=== PATIENT | male | born 1975 | race Caucasian/White ===

== ENCOUNTER 2017-07-29 11:10 | Emergency (ER) | payer OTHER, MEDICAID ==
[~2017-07-29] VITALS: Ht 170.2 cm; Wt 59.9 kg
[~2017-07-29 11:10] MED LIST: BACTRIM DS TAB1 EACH PO; HUMALOG100 UNIT/1 SUBQ; KEFLEX500 MG PO; LANTUS100 UNIT/M SUBQ; LISINOPRIL2.5 MG PO; NEURONTIN600 MG PO; TOUJEO SOL300 UNIT/1
[2017-07-29] MEDS ORDERED: NOVOLOG100 UNIT/1 SUBQ (11:23)
[2017-07-29] MEDS ORDERED: TRADJENTA5 MG (11:25)
[2017-07-29] MEDS ORDERED: TRIAMCINOLONE A80 G2 TOP (11:35)
[2017-07-29 11:43] VITALS: BP 110/67
== END 2017-07-29 11:44 | disposition home or self-care (01) ==
LOC: M.ERS 11:10
DX: L25.9 Unspecified contact dermatitis, unspecified cause (principal); E10.40 Type 1 diabetes mellitus with diabetic neuropathy, unspecified

== ENCOUNTER 2017-10-17 19:58 | Observation (INO) | payer OTHER, MEDICAID ==
[~2017-10-17] VITALS: Ht 170.2 cm; Wt 64.4 kg
[2017-10-17 19:58] VITALS: BP 112/64
[~2017-10-17 19:58] MED LIST changes: +NOVOLOG100 UNIT/1 SUBQ; +TRADJENTA5 MG; +TRIAMCINOLONE A80 G2 TOP
[2017-10-17 20:30] LABS: ABSOLUTE EOSINOPHILS 0.3 thou/uL (0.0-0.7); ABSOLUTE LYMPHOCYTES 1.1 thou/uL (0.8-5.3); ABSOLUTE MONOCYTES 0.2 thou/uL (0.0-1.2); ABSOLUTE NEUTROPHILS 3.8 thou/uL (1.6-8.1); BASOPHILS 0.5 %; EOSINOPHILS 5.7 %; HEMATOCRIT 32.8 % (42.0-52.0); HEMOGLOBIN 11.6 gm/dL (14.0-18.0); LYMPHOCYTES 19.8 %; MCH 29.5 pg (26.0-34.0); MCHC 35.4 g/dL (28.0-37.0); MCV 83.2 fL (80.0-100.0); MONOCYTES 4.5 %; MPV 6.7 fl. (7.2-11.1); NUCLEATED RBCS 0 /100WBC; PLATELET COUNT* 157 thou/uL (150-400); POLYS 69.5 %; RBC 3.94 mil/uL (4.50-6.00); RDW-CV 12.8 % (10.5-14.5); WBC 5.5 thou/uL (4.0-11.0)
[2017-10-17 20:37] LABS: ANION GAP 6 mmol/L (7-16); BUN 22 mg/dL (7-18); CALCIUM 9.5 mg/dL (8.5-10.1); CHLORIDE 108 mmol/L (98-107); CO2 30 mmol/L (21-32); CREATININE 1.3 mg/dL (0.6-1.3); GLUCOSE 62 mg/dL (70-99); SODIUM 144 mmol/L (136-145)
[2017-10-17 20:39] LABS: POTASSIUM 2.9 mmol/L (3.5-5.1)
[2017-10-17 20:45] LABS: ALBUMIN 3.4 g/dL (3.4-5.0); ALKALINE PHOSPHATASE 67 U/L (46-116); SGOT 6 U/L (15-37); SGPT 14 U/L (30-65); TOTAL BILIRUBIN 0.3 mg/dL (<0.1-1.0); TOTAL PROTEIN 6.9 g/dL (6.4-8.2); TROPONIN-I LEVEL <0.06 ng/mL (<0.06)
[2017-10-18 04:00] VITALS: BP 120/68
[2017-10-18 08:00] VITALS: BP 101/69
[2017-10-18 11:37] LABS: URINE BILIRUBIN NEGATIVE (Negative); URINE BLOOD TRACE (Negative); URINE CLARITY CLEAR; URINE COLOR YELLOW; URINE GLUCOSE-RANDOM 3+ (Negative); URINE KETONES 1+ (Negative); URINE LEUKOCYTES-REFLEX NEGATIVE (Negative); URINE NITRITE-REFLEX NEGATIVE (Negative); URINE PROTEIN NEGATIVE (Negative); URINE UROBILINOGEN 0.2 E.U./dl (0.2-1.0)
[2017-10-18 12:00] VITALS: BP 145/83
[2017-10-18 16:13] VITALS: BP 144/95
[2017-10-18 20:00] VITALS: BP 93/55
[2017-10-19] VITALS: BP 125/70; BP 97/54
[2017-10-19 03:07] LABS: GLYCOHEMOGLOBIN (HGB A1C) 9.5 % (4.8-5.6)
[2017-10-19 04:00] VITALS: BP 85/50
[2017-10-19 05:06] LABS: CALCIUM 8.5 mg/dL (8.5-10.1); CREATININE 1.3 mg/dL (0.6-1.3); POTASSIUM 4.2 mmol/L (3.5-5.1)
[2017-10-19 08:00] VITALS: BP 120/76
--- NOTE | 2017-10-19 09:37 | EKG ---
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
[2017-10-19 11:59] VITALS: BP 100/66
[2017-10-19] MEDS ORDERED: AZITHROMYCIN 2250 MG PO (12:01)
[2017-10-19 12:06] VITALS: BP 100/66
[2017-10-20 03:07] LABS: GLYCOHEMOGLOBIN (HGB A1C) 9.5 % (4.8-5.6)
== END 2017-10-19 12:56 | disposition home or self-care (01) ==
LOC: M.ERS 19:58 → M.TBA-ER 10-18 00:39 → M.2W 10-18 00:39
PROVIDERS: Internal Medicine; Personal Emergency Response Attendant; ADMIT Internal Medicine
DX: E10.649 Type 1 diabetes mellitus with hypoglycemia without coma (principal); J15.9 Unspecified bacterial pneumonia; E10.40 Type 1 diabetes mellitus with diabetic neuropathy, unspecified; E87.6 Hypokalemia; E10.65 Type 1 diabetes mellitus with hyperglycemia

== ENCOUNTER 2018-07-27 08:38 | Emergency (ER) | payer OTHER, MEDICAID ==
[~2018-07-27] VITALS: Ht 170.2 cm; Wt 63.5 kg
--- NOTE | ~2018-07-27 | CON ---
[address] [address] CONSULTATION Name: KAREN AUSTIN SR [id number] Admission: 07/27/18 Attend Phys: Discharge: 07/27/18 Date of : 75 Report #: [id number] THIS REPORT FOR: //name// CC: Raymond Velez DATE OF SERVICE: 07/27/2018 HISTORY OF PRESENT ILLNESS: This is a very pleasant 43-year-old gentleman who was seen in the Emergency Room after he jumped off a wall about 4-5 feet tall. He says he felt some pain immediately in this right ankle region, is here to be evaluated in the Emergency Room. The patient is known insulin diabetic as well. He does not have any pain necessarily anywhere else. It is mostly down on the foot and ankle region, he describes. The patient denies any numbness or tingling in the lower extremities. 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 CURRENT MEDICATIONS: Include some triamcinolone cream. He is on Neurontin and Humalog. ALLERGIES: No known allergies. SOCIAL HISTORY: No tobacco or alcohol use at the present time. REVIEW OF SYSTEMS: It is just pain musculoskeletally in this right ankle region. PHYSICAL EXAMINATION: GENERAL: He is alert, oriented and cooperative, appropriate affect and judgment. HEENT: Normocephalic. His sclerae is white. Mucous membranes are moist. NECK: Soft. Trachea is midline. LUNGS: No audible wheezes are noted in the lungs. ABDOMEN: Flat abdomen. EXTREMITIES: He does demonstrate a reddened area to the right lower leg that has affected the on the tibia region that is noted at the distal third. It appears to be somewhat of a rash and might even be a Staph rash. Does demonstrate to show some ankle edema and tenderness directly over the calcaneus. No tenderness over the malleoli of either side of the ankle. On his examination otherwise, this patient does demonstrate radiographically; however, the right ankle, there is a small cortical area at the distal fibula, there is a remote possibility of even a small talus type injury, but there is definitely a calcaneus fracture that is noted in this hindfoot region. There are some vascular changes noted in the lower extremity as well[place] [address] CONSULTATION Name: KAREN AUSTIN SR [id number] Admission: 07/27/18 Attend Phys: Discharge: 07/27/18 Date of : 75 Report #: [id number] fracture is definitely nondisplaced. IMPRESSION: Consistent with: 1. Fall. 2. Calcaneus fracture on the right foot. 3. Does have a remote possibility of a lateral malleolus fracture and/or potential lateral talus. PLAN: For him is to put him in a nice well-padded posterior [place]ona splint type dressing. He thinks he probably does need an antibiotic and he was given a script for Bactrim for this and pain medication. We will see him as he can be nonweightbearing. See him back in 2 weeks to followup. All questions were answered otherwise. It is my pleasure seeing and taking care of this patient. By: [id number] Mauricio DO /nt
[~2018-07-27 08:38] MED LIST changes: +AZITHROMYCIN 2250 MG PO; -NOVOLOG100 UNIT/1 SUBQ
[2018-07-27] MEDS ORDERED: HYDROCODONE-AP1 EAC6 PO (10:45)
[2018-07-27 10:50] VITALS: BP 104/68
[2018-07-27] MEDS ORDERED: BACTRIM DS TAB1 EACH PO (10:59)
== END 2018-07-27 10:55 | disposition home or self-care (01) ==
LOC: M.ERS 08:38
DX: S92.001A Unspecified fracture of right calcaneus, initial encounter for closed fracture (principal); E10.21 Type 1 diabetes mellitus with diabetic nephropathy; W13.8XXA Fall from, out of or through other building or structure, initial encounter; Y93.89 Activity, other specified; Y92.89 Other specified places as the place of occurrence of the external cause; Y99.8 Other external cause status

== ENCOUNTER 2018-10-23 18:41 | Emergency (ER) | payer OTHER, MEDICAID ==
[~2018-10-23] VITALS: Ht 170.2 cm; Wt 61.2 kg
[~2018-10-23 18:41] MED LIST changes: +HYDROCODONE-AP1 EAC6 PO
[2018-10-23] MEDS ORDERED: BACTRIM DS TAB1 EACH PO (19:10)
[2018-10-23] MEDS ORDERED: NABUMETONE 750750 M1 PO (19:10)
[2018-10-23] MEDS ORDERED: KEFLEX500 M1 PO (19:10)
[2018-10-23 19:27] VITALS: BP 116/73
== END 2018-10-23 19:29 | disposition home or self-care (01) ==
LOC: M.ERS 18:41
DX: S90.562A Insect bite (nonvenomous), left ankle, initial encounter (principal); S90.561A Insect bite (nonvenomous), right ankle, initial encounter; E10.40 Type 1 diabetes mellitus with diabetic neuropathy, unspecified; W57.XXXA Bitten or stung by nonvenomous insect and other nonvenomous arthropods, initial encounter; Y93.89 Activity, other specified; Y92.89 Other specified places as the place of occurrence of the external cause; Y99.8 Other external cause status

== ENCOUNTER → 2018-11-24 | Outpatient (CLI) | payer OTHER, MEDICAID ==
[~2018-11-24] MED LIST changes: +KEFLEX500 M1 PO; +NABUMETONE 750750 M1 PO
== END ==
LOC: M.WC 11-22 09:00
DX: E11.622 Type 2 diabetes mellitus with other skin ulcer (principal); L97.811 Non-pressure chronic ulcer of other part of right lower leg limited to breakdown of skin; L97.821 Non-pressure chronic ulcer of other part of left lower leg limited to breakdown of skin; L97.321 Non-pressure chronic ulcer of left ankle limited to breakdown of skin; L03.115 Cellulitis of right lower limb; L03.116 Cellulitis of left lower limb; E11.65 Type 2 diabetes mellitus with hyperglycemia; E11.36 Type 2 diabetes mellitus with diabetic cataract; E11.40 Type 2 diabetes mellitus with diabetic neuropathy, unspecified; Z98.49 Cataract extraction status, unspecified eye; Z79.4 Long term (current) use of insulin

== ENCOUNTER 2019-05-02 13:30 | Emergency (ER) | payer OTHER, MEDICAID ==
[~2019-05-02] VITALS: Ht 172.7 cm; Wt 59.0 kg
[2019-05-02] MEDS ORDERED: TOUJEO SOL300 UNIT/1 (13:36)
[2019-05-02 14:26] LABS: BE -6.5 mmol/L (-2 to +3); PCO2 VENOUS 50.8 mmHg (41.0-51.0); PO2 VENOUS 33.7 mmHg (35.0-45.0)
[2019-05-02 14:27] LABS: ABSOLUTE LYMPHOCYTES 0.8 thou/uL (0.8-5.3); ABSOLUTE MONOCYTES 0.2 thou/uL (0.0-1.2); ABSOLUTE NEUTROPHILS 3.1 thou/uL (1.6-8.1); BASOPHILS 0.9 %; EOSINOPHILS 0.5 %; HEMATOCRIT 36.6 % (42.0-52.0); LYMPHOCYTES 19.8 %; MCHC 35.5 g/dL (28.0-37.0); MCV 84.3 fL (80.0-100.0); MONOCYTES 3.7 %; MPV 6.8 fl. (7.2-11.1); NUCLEATED RBCS 0 /100WBC; PLATELET COUNT* 157 thou/uL (150-400); POLYS 75.1 %; RBC 4.35 mil/uL (4.50-6.00); WBC 4.1 thou/uL (4.0-11.0)
[2019-05-02 14:28] LABS: URINE BILIRUBIN NEGATIVE (Negative); URINE BLOOD 1+ (Negative); URINE CLARITY CLEAR; URINE COLOR YELLOW; URINE GLUCOSE-RANDOM 3+ (Negative); URINE KETONES 2+ (Negative); URINE LEUKOCYTES-REFLEX NEGATIVE (Negative); URINE NITRITE-REFLEX NEGATIVE (Negative); URINE PROTEIN TRACE (Negative); URINE SPECIFIC GRAVITY 1.015 (1.005-1.030); URINE UROBILINOGEN 0.2 E.U./dl (0.2-1.0)
[2019-05-02 14:35] LABS: CALCIUM 8.5 mg/dL (8.5-10.1); CREATININE 1.3 mg/dL (0.6-1.3)
[2019-05-02 14:39] LABS: ALBUMIN 3.3 g/dL (3.4-5.0); TOTAL BILIRUBIN 0.5 mg/dL (<0.1-1.0); TOTAL PROTEIN 6.6 g/dL (6.4-8.2)
[2019-05-02 14:39] LABS: SQUAMOUS NONE SEEN /LPF (0-3)
[2019-05-02 14:40] LABS: URINE RBC 0-2 Rare /HPF (0-2); URINE WBC-REFLEX None Seen /HPF (0-5)
[2019-05-02 14:41] LABS: BACTERIA-REFLEX 1-9 Few /HPF (None Seen); CASTS None Seen /LPF (None Seen); CRYSTALS None Seen /LPF (None Seen); MUCUS None Seen strn/LPF (None Seen)
[2019-05-02 14:52] LABS: APTT 24.3 Seconds (25.0-31.3); INR 0.9; PROTIME 9.2 Seconds (9.20-11.50)
--- NOTE | 2019-05-02 15:35 | EKG ---
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: [facility] : 1975 Requested By: Darrius Argueta Order Number: [id number] MD: Norberto Pretty Measurements Intervals [place] Rate: 90 P: 55 FL: 134 QRS: 55 QRSD: 77 T: 16 QT: 373 QTc: 457 Interpretive Statements Sinus rhythm Compared to ECG 10/17/2017 20:14:34 No significant changes Electronically Signed On 05-02-2019 15:34:43 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
[2019-05-02 15:44] VITALS: BP 137/79
== END 2019-05-02 15:46 | disposition home or self-care (01) ==
LOC: M.ERS 13:30
PROVIDERS: Family Medicine
DX: E10.10 Type 1 diabetes mellitus with ketoacidosis without coma (principal); E10.40 Type 1 diabetes mellitus with diabetic neuropathy, unspecified; R11.2 Nausea with vomiting, unspecified; Z79.4 Long term (current) use of insulin

== ENCOUNTER 2019-07-20 00:02 | Emergency (ER) | payer OTHER, MEDICAID ==
[~2019-07-20] VITALS: Ht 172.7 cm; Wt 61.7 kg
[2019-07-20] MEDS ORDERED: GABAPENTIN600 M1 PO (00:12)
[2019-07-20 01:27] LABS: ABSOLUTE EOSINOPHILS 0.1 thou/uL (0.0-0.7); ABSOLUTE LYMPHOCYTES 1.5 thou/uL (0.8-5.3); ABSOLUTE MONOCYTES 0.3 thou/uL (0.0-1.2); ABSOLUTE NEUTROPHILS 5.5 thou/uL (1.6-8.1); BASOPHILS 0.5 %; EOSINOPHILS 0.7 %; HEMATOCRIT 33.3 % (42.0-52.0); LYMPHOCYTES 20.1 %; MCH 30.4 pg (26.0-34.0); MCV 84.5 fL (80.0-100.0); MPV 6.4 fl. (7.2-11.1); NUCLEATED RBCS 0 /100WBC; PLATELET COUNT* 228 thou/uL (150-400); POLYS 74.7 %; RBC 3.95 mil/uL (4.50-6.00); RDW-CV 12.6 % (10.5-14.5); WBC 7.3 thou/uL (4.0-11.0)
[2019-07-20 01:37] LABS: CALCIUM 9.2 mg/dL (8.5-10.1)
[2019-07-20 01:41] LABS: ALBUMIN 3.4 g/dL (3.4-5.0); TOTAL BILIRUBIN 0.2 mg/dL (<0.1-1.0); TOTAL PROTEIN 6.5 g/dL (6.4-8.2)
[2019-07-20 06:15] LABS: CALCIUM 8.3 mg/dL (8.5-10.1); CREATININE 1.4 mg/dL (0.6-1.3); POTASSIUM 3.8 mmol/L (3.5-5.1)
[2019-07-20 09:20] VITALS: BP 163/83
[2019-07-20] MEDS ORDERED: INSULIN SYRING1 EA10 SUBQ (22:43)
== END 2019-07-20 09:20 | disposition home or self-care (01) ==
LOC: M.ERS 00:02
PROVIDERS: Emergency Medicine
DX: E10.649 Type 1 diabetes mellitus with hypoglycemia without coma (principal); E10.40 Type 1 diabetes mellitus with diabetic neuropathy, unspecified; R42 Dizziness and giddiness; Z59.0 Homelessness

== ENCOUNTER 2019-07-20 21:17 | Emergency (ER) | payer OTHER, MEDICAID ==
[~2019-07-20] VITALS: Ht 172.7 cm; Wt 61.7 kg
[~2019-07-20 21:17] MED LIST changes: +GABAPENTIN600 M1 PO
[2019-07-20 21:59] LABS: ABSOLUTE EOSINOPHILS 0.1 thou/uL (0.0-0.7); ABSOLUTE LYMPHOCYTES 1.1 thou/uL (0.8-5.3); ABSOLUTE MONOCYTES 0.3 thou/uL (0.0-1.2); ABSOLUTE NEUTROPHILS 3.1 thou/uL (1.6-8.1); EOSINOPHILS 1.8 %; HEMATOCRIT 35.6 % (42.0-52.0); HEMOGLOBIN 12.4 gm/dL (14.0-18.0); LYMPHOCYTES 23.5 %; MCH 30.4 pg (26.0-34.0); MCHC 34.7 g/dL (28.0-37.0); MCV 87.4 fL (80.0-100.0); MONOCYTES 5.6 %; MPV 6.7 fl. (7.2-11.1); NUCLEATED RBCS 0 /100WBC; PLATELET COUNT* 198 thou/uL (150-400); POLYS 68.1 %; RBC 4.07 mil/uL (4.50-6.00); RDW-CV 12.8 % (10.5-14.5); WBC 4.5 thou/uL (4.0-11.0)
[2019-07-20 22:00] LABS: BE -5.3 mmol/L (-2 to +3); PCO2 VENOUS 42.5 mmHg (41.0-51.0); PO2 VENOUS 42.2 mmHg (35.0-45.0)
[2019-07-20 22:16] LABS: ALBUMIN 3.4 g/dL (3.4-5.0); CREATININE 1.6 mg/dL (0.6-1.3); POTASSIUM 4.5 mmol/L (3.5-5.1); TOTAL BILIRUBIN 0.4 mg/dL (<0.1-1.0); TOTAL PROTEIN 6.9 g/dL (6.4-8.2)
[2019-07-20] MEDS ORDERED: INSULIN SYRING1 EA10 SUBQ (22:43)
[2019-07-20 22:52] VITALS: BP 123/62
== END 2019-07-20 22:53 | disposition home or self-care (01) ==
LOC: M.ERS 21:17
PROVIDERS: Family Medicine
DX: E10.40 Type 1 diabetes mellitus with diabetic neuropathy, unspecified (principal); R11.2 Nausea with vomiting, unspecified; Z79.4 Long term (current) use of insulin